=== PATIENT | male | born 1990 | race Caucasian/White ===

== ENCOUNTER 2020-12-08 08:55 | Outpatient (REF) | payer OTHER, SELFPAY | END 2020-12-08 08:56 | disposition home or self-care (01) | LOC: HO.LAB 08:55 | PROVIDERS: Visit Provider Internal Medicine | DX: Z20.822 Contact with and (suspected) exposure to COVID-19 (principal) | CPT/HCPCS: 36415; C9803; U0003; U0005 ==

== ENCOUNTER 2022-09-13 16:04 | Emergency (ER) | payer OTHER, SELFPAY ==
--- NOTE | ~2022-09-13 | US_ITS ---
EXAMINATION: US ABDOMEN LIMITED CLINICAL INFORMATION: Right upper quadrant/epigastric abdominal pain. COMPARISON: CT abdomen/pelvis 08/20/2013. TECHNIQUE: Real-time imaging of the right upper quadrant abdominal viscera. FINDINGS: PANCREAS: Normal. LIVER: The liver is normal in size. The liver contour is normal. Increased liver parenchymal echogenicity. No focal hepatic lesion. There is no intrahepatic biliary duct dilatation seen. GALLBLADDER: Normal. The gallbladder is physiologically distended without evidence of stones, sludge, polyps, wall thickening or pericholecystic fluid. COMMON BILE DUCT: Normal in caliber measuring 0.2 cm in diameter. RIGHT KIDNEY: Normal. No hydronephrosis. No renal calculi or focal parenchymal lesions. The kidney measures 10.4 cm in maximum dimension. FREE FLUID: None. US/US abdomen limited IMPRESSION: 1. Increased liver parenchymal echogenicity is nonspecific and could be seen in the setting of hepatic steatosis. Correlate with liver function tests. 2. Otherwise, normal examination.
[2022-09-13 17:15] VITALS: BP 158/98; PULSE 97; RESP 16; TEMP 36.6; O2SAT 97; BMI 34.9
--- NOTE | 2022-09-13 17:15 | ED.GENADULT ---
HPI - General Adult General Chief complaint: Medical Clearance <Chikis Suarez MD - Last Filed: 09/13/22 17:20> Stated complaint: Blood in stool/Needs clearance for detox <Chikis Suarez MD - Last Filed: 09/13/22 17:20> Time Seen by Provider: 09/13/22 18:37 <Chikis Suarez MD - Last Filed: 09/13/22 17:20> Source: patient <CARLEY Alvarenga - Last Filed: 09/13/22 22:19> Mode of arrival: ambulatory <CARLEY Alvarenga - Last Filed: 09/13/22 22:19> History of Present Illness HPI narrative: 31-year-old male with a past medical history of ETOH abuse/dependence presenting to the ED for detox medical clearance. States was taking intake at [facility] and reported bloody stools a few months ago, so was instructed to come to the ED. patient admits to drinking a few bottles of alcohol every couple days, last drink on Monday. Reports feeling mild withdrawal symptoms at present, denies history of EtOH withdrawal seizures or DTs. Denies other illicit substances. Admits had 1 episode of bloody stool months ago, also reports right upper quadrant abdominal pain. Denies fever, chills, vomiting, diarrhea, bloody stools/melena, hematuria, CP/SOB <CARLEY Alvarenga - Last Filed: 09/13/22 22:19> Onset (ago): day(s) <CARLEY Alvarenga - Last Filed: 09/13/22 22:19> Related Data Allergies/adverse reactions: Allergies Allergy/AdvReac Type Severity Reaction Status Date / Time SEAFOOD Allergy Severe ANAPHYLAXIS Uncoded 04/23/21 13:37 <Chikis Suarez MD - Last Filed: 09/13/22 17:20> Review of Systems Review of Systems: Constitutional: No Fever, No Chills, No Fatigue, No Malaise ENT/Mouth: No Ear Pain, No Nasal Congestion, No sore throat, No Rhinorrhea, No Swallowing Difficulty Eyes: No Eye Pain, No Swelling, No Redness, No Discharge, No Vision Changes Cardiovascular: No Chest Pain, No SOB, No Edema, No Palpitations Respiratory: No Cough, No Sputum, No Dyspnea Gastrointestinal: No Nausea, No Vomiting, No Diarrhea, No Constipation, + Abdominal pain, +bloody stool x1, No Melena Genitourinary: No Dysuria, No Hematuria, No Urinary Incontinence/retention, No Flank Pain Musculoskeletal: No joint pain, No Myalgias, No Joint Swelling Skin: No Skin Lesions, No rash Neuro: No Weakness, No Headache Psych: No Anxiety/Panic, No Depression, No SI/HI/AH/VH, No Social Issues, <CARLEY Alvarenga - Last Filed: 09/13/22 22:19> Yes all other systems are reviewed and are negative <CARLEY Alvarenga - Last Filed: 09/13/22 22:19> Constitutional: Constitutional: Reports as per HPI <CARLEY Alvarenga - Last Filed: 09/13/22 22:19> [facility] Past Medical History Attestation statement: The following information was validated with the patient. <CARLEY Alvarenga - Last Filed: 09/13/22 22:19> Social History Social History: Social History Advance Directives: No Advance Directives Information Provided: No <Chikis Suarez MD - Last Filed: 09/13/22 17:20> Physical Exam ED Vital Signs: Vital Signs - 24 hr 09/13/22 17:15 09/13/22 20:39 Temperature 98 F 98.0 F Pulse Rate 97 73 Respiratory Rate 16 18 Blood Pressure 158/98 H 138/83 Pulse Oximetry 97 96 Oxygen Delivery Method Room Air Room Air BMI result Body Mass Index 34.9 <Chikis Suarez MD - Last Filed: 09/13/22 17:20> Vital Signs - 24 hr 09/13/22 17:15 09/13/22 20:39 Temperature 98 F 98.0 F Pulse Rate 97 73 Respiratory Rate 16 18 Blood Pressure 158/98 H 138/83 Pulse Oximetry 97 96 Oxygen Delivery Method Room Air Room Air BMI result Body Mass Index 34.9 <CARLEY Alvarenga - Last Filed: 09/13/22 22:19> Const General: cooperative, healthy appearing, comfortable, no acute distress and well developed <CARLEY Alvarenga - Last Filed: 12/06/22 22:19> Orientation/consciousness: patient oriented x3 <CARLEY Alvarenga - Last Filed: 09/13/22 22:19> Limitations: no limitations <Christie Kim PA - Last Filed: 09/13/22 22:19> HENMT Head: Yes normal to inspection and Yes atraumatic <Christie Kim PA - Last Filed: 09/13/22 22:19> Ears: hearing grossly normal bilaterally <Christie Kim PA - Last Filed: 09/13/22 22:19> General nose exam: Normal external nose present <Christie Kim PA - Last Filed: 09/13/22 22:19> Face and sinus: Yes normal facial exam <Christie Kim PA - Last Filed: 09/13/22 22:19> Throat: Yes posterior oropharynx normal <Christie Kim PA - Last Filed: 09/13/22 22:19> Eyes General: appearance normal, both eyes and all related structures <Christie Kim PA - Last Filed: 09/13/22 22:19> EOM: EOMs intact bilaterally <Christie Kim PA - Last Filed: 09/13/22 22:19> Neck Neck: Yes normal visual inspection and Yes no meningeal signs <Christie Kim PA - Last Filed: 09/13/22 22:19> Resp Effort & Inspection: normal respiratory effort and no respiratory distress <Christie Kim PA - Last Filed: 09/13/22 22:19> Auscultation: clear to auscultation bilaterally, no crackles, no rales and no rhonchi <Christie Kim PA - Last Filed: 09/13/22 22:19> Cardio Rate: regular rate <Christie Kim PA - Last Filed: 09/13/22 22:19> Heart sounds: S1 normal heart sound present and S2 normal heart sound present <Christie Kim PA - Last Filed: 09/13/22 22:19> GI Inspection: Yes normal to inspection <Christie Kim PA - Last Filed: 09/13/22 22:19> Palpation (GI): Soft to palpation, Tenderness to palpation present (GI) in the epigastrum and in the RUQ; with no rebound tenderness, no guarding and not rigid <CARLEY Alvarenga - Last Filed: 09/13/22 22:19> Skin Rashes: no rashes <CARLEY Alvarenga - Last Filed: 09/13/22 22:19> Wounds: no wounds <CARLEY Alvarenga - Last Filed: 09/13/22 22:19> Neuro Other: No tongue fasciculations or tremor <CARLEY Alvarenga - Last Filed: 09/13/22 22:19> General: patient oriented x3, gait normal, tone normal, no meningeal signs and CN's II-XI intact bilaterally <CARLEY Alvarenga - Last Filed: 09/13/22 22:19> Gait exam (Neuro): Normal gait present <CARLEY Alvarenga - Last Filed: 09/13/22 22:19> Extrem General: Yes normal to inspection <CARLEY Alvarenga - Last Filed: 09/13/22 22:19> Course Course Course Narrative: 31M supposed to get etoh rehab, and pt mentioned a remote histoyr of bloody stool but denies any recent bloody stool, no dizziness or SOB. VS Reviewed GEN: NAD EARS: wnl THROAT: wnl LUNGS: CTAB CVS: RRR ABD: NT/ND <Chikis Suarez MD - Last Filed: 09/13/22 17:20> 31M supposed to get etoh rehab, and pt mentioned a remote histoyr of bloody stool but denies any recent bloody stool, no dizziness or SOB. VS Reviewed GEN: NAD EARS: wnl THROAT: wnl LUNGS: CTAB CVS: RRR ABD: NT/ND -2200--mild leukocytosis of 13.9 > no evidence of infection. Low suspicion for severe sepsis. Mild THAIS with a BUN of 18, creatinine of 1.66, no available priors > will give 1 L IVF and repeat. Labs otherwise reassuring US abdomen limited IMPRESSION: 1.? Increased liver parenchymal echogenicity is nonspecific and could be seen in the setting of hepatic steatosis. Correlate with liver function tests. 2.? Otherwise, normal examination. > patient deferred rectal exam however was able to give stool sample and occult negative. Tox screen positive for cocaine and THC. Alcohol negative. >> THAIS resolved after IVF Results discussed with patient including worrisome signs and symptoms and strict return precautions, and when to return to the emergency department. They verbalized understanding and feel safe for discharge at this time. <CARLEY Alvarenga - Last Filed: 09/13/22 22:19> Medications Administered Discontinued Medications Generic Name Dose Route Start Last Admin Trade Name Freq PRN Reason Stop Dose Admin Sodium Chloride 1,000 mls @ 999 mls/hr 09/13/22 19:00 09/13/22 21:13 Ns IV 09/13/22 20:00 Infused .Q1H1M PIPPA Infusion <Chikis Suarez MD - Last Filed: 09/13/22 17:20> Medications Administered Discontinued Medications Generic Name Dose Route Start Last Admin Trade Name Freq PRN Reason Stop Dose Admin Sodium Chloride 1,000 mls @ 999 mls/hr 09/13/22 19:00 09/13/22 21:13 Ns IV 09/13/22 20:00 Infused .Q1H1M PIPPA Infusion <CARLEY Alvarenga - Last Filed: 09/13/22 22:19> Medical Decision Making Medical Decision Making MDM Narrative: 31-year-old male with a past medical history of ETOH abuse/dependence presenting to the ED for detox medical clearance. On exam vital signs stable, NAD, nontoxic appearing, abdomen soft with epigastric/RUQ tenderness, no rebound or guarding, no evidence of ETOH withdrawal at this time. Concern for ETOH dependence vs metabolic abnormality vs hepatic steatosis/cholecystitis/lithiasis vs ? Hemorrhoidal bleeding. Lower suspicion for occult GI bleed with 1 episode of bloody stool months ago. Plan: COVID-19/influenza testing, labs, drug screen, abdomen ultrasound <CARLEY Alvarenga - Last Filed: 09/13/22 22:19> Differential Diagnoses: Differential diagnosis Differential Diagnosis: The differential diagnosis associated with the patient?s presentation includes: As above <CARLEY Alvarenga Last Filed: 09/13/22 22:19> Discussion of management with other physician/healthcare provider/other source (e.g., hospitalist, student union consultant, behavioral health): Discussion w/other physician/healthcare provider Management of the patient was discussed with: Behavorial Health Provider To aid patient getting into detox <CARLEY Alvarenga Last Filed: 09/13/22 22:19> Lab Attestation: I reviewed the patient's lab results. <CARLEY Alvarenga - Last Filed: 09/13/22 22:19> Care significantly affected by Social Determinants of Health (e.g., housing and economic circumstances, unemployment): Care affected by Social Determinants of Health Patient's care limited by Social Determinants of Health: Alcoholism and drug addiction in family <CARLEY Alvarenga - Last Filed: 09/13/22 22:19> Discharge Plan Discharge Clinical Impression: Alcohol abuse, Acute dehydration <Chikis Suarez MD - Last Filed: 09/13/22 17:20> Patient Disposition: Home, Self-Care <Chikis Suarez MD - Last Filed: 09/13/22 17:20> Instructions: Dehydration (ED), Alcohol Use Disorder (ED) <Chikis Suarez MD - Last Filed: 09/13/22 17:20> Additional Instructions: You are medically cleared to go to detox Your stool was negative for blood. Your blood work initially showed evidence of dehydration however resolved after you were given fluids. Your ultrasound showed some fatty liver, avoid alcohol, fatty/greasy foods We have close follow-up with your doctor. Avoid alcohol consumption, alcohol withdrawal can kill you If symptoms persist or worsen, you develop recurrent bloody stool or black stool return to the emergency department <Chikis Suarez MD - Last Filed: 09/13/22 17:20> Referrals: Nancy Soto MD [Primary Care Provider] - 5 days <Chikis Suarez MD - Last Filed: 09/13/22 17:20> Stand Alone Forms: Substance Abuse Outpt Detox <Chikis Suarez MD - Last Filed: 09/13/22 17:20> Discharge Date/Time: 09/13/22 22:19 <Chikis Suarez MD - Last Filed: 09/13/22 17:20>
[2022-09-13 18:01] LABS: MANUAL DIFF FLAG NO
[2022-09-13 18:14] LABS: Amphetamine Screen Urine Not Detected (Not Detect); Barbiturates, Urine Not Detected (Not Detect); Benzodiazepines Screen Urine Not Detected (Not Detect); Cannabinoid Screen Urine POSITIVE (Not Detect); Cocaine Screen Urine POSITIVE (Not Detect); Fentanyl, urine Not Detected (Not Detect); Opiate Screen Urine Not Detected (Not Detect); Phencyclidine Screen Urine Not Detected (Not Detect)
[2022-09-13 18:23] LABS: COVID-19 Test Negative (Negative); IDNOW Serial# 55D5AD1C; Influenza A Negative (Negative); Influenza B2 Negative (Negative)
[2022-09-13 18:28] LABS: Alanine Aminotransferase 38 U/L (0-40); Albumin Level 4.6 g/dL (3.5-5.0); Alkaline Phosphatase 98 U/L (39-117); Anion Gap 12 (12-20); Aspartate Amino Transferase 21 U/L (5-37); Bilirubin Total 0.3 mg/dL (0.0-1.0); Blood Urea Nitrogen 18 mg/dL (9-16); Calcium 9.7 mg/dL (8.4-10.2); Carbon Dioxide 25 mmol/L (22-29); Chloride 106 mmol/L (96-108); Creatinine Clr Calc Pharmacy 68.4; Estimated Glomerular Filt Rate 49; Glucose Random 113 mg/dL (60-115); Potassium 4.1 mmol/L (3.3-5.1); Sodium 139 mmol/L (135-145)
[2022-09-13 18:31] LABS: Basophils Absolute Auto 0.1 X10*3/uL (0.0-0.2); Basophils Percent Auto 0.6 % (0-2); Eosinophils Absolute Auto 0.3 X10*3/uL (0.0-0.4); Eosinophils Percent Auto 1.9 % (0-4); Hematocrit 45.5 % (42.0-52.0); Hemoglobin 15.2 g/dl (14.0-18.0); Imm Gran Abs Auto 0.14 X10*3/uL (0.00-0.03); Lymphocytes Absolute Auto 3.8 X10*3/uL (1.2-4.9); Lymphocytes Percent Auto 27.2 % (20-40); Mean Corpuscular HGB Conc 33.4 g/dl (31.0-36.0); Mean Corpuscular Hemoglobin 26.8 pg (27.0-33.0); Mean Corpuscular Volume 80.2 fL (80.0-98.0); Mean Platelet Volume 9.3 fL (9.4-12.4); Monocytes Percent Auto 6.8 % (2-11); Neutrophils Absolute Auto 8.7 x10*3/uL (2.0-8.3); Neutrophils Percent Auto 62.5 % (45-73); Platelet Count 370 X10*3/uL (160-400); Red Blood Count 5.67 X10*6/uL (4.60-5.80); Red Cell Distribution Width 13.2 % (11.0-16.0); White Blood Count 13.9 X10*3/uL (4.8-10.8)
[2022-09-13 18:37] LABS: Ethanol < 10 mg/dL; Total Protein 8.2 g/dL (6.5-8.0)
[2022-09-13 19:15] LABS: Lipase 25 U/L (8-78); Magnesium 2.1 mg/dL (1.6-2.6)
[2022-09-13] MEDS: 0.9 % Sodium Chloride 1,000 ML 999 ML IV (19:34)
[2022-09-13 20:39] VITALS: BP 138/83; PULSE 73; RESP 18; TEMP 36.7; O2SAT 96
[2022-09-13 21:29] LABS: Anion Gap 14 (12-20); Blood Urea Nitrogen 17 mg/dL (9-16); Calcium 8.9 mg/dL (8.4-10.2); Carbon Dioxide 23 mmol/L (22-29); Chloride 106 mmol/L (96-108); Creatinine Clr Calc Pharmacy 82.8; Estimated Glomerular Filt Rate > 60; Glucose Random 101 mg/dL (60-115); Potassium 4.1 mmol/L (3.3-5.1); Sodium 139 mmol/L (135-145)
[2022-09-13 21:44] LABS: OBS Int Ctl Valid YES; OBS1 NEGATIVE (NEGATIVE)
--- NOTE | 2022-09-13 22:21 | MHC.CARE ---
CARE team contacted Carrie Arauz re: pt who reported that he had completed a phone intake for detox admission and was told to go to the ED for medical clearance. ED physician report has been faxed to Carrie Arauz for review and the executive coordinator will reach out to the pt to schedule an intake for the morning.
== END 2022-09-13 22:19 | disposition home or self-care (01) ==
PROVIDERS: Physician Assistant; Emergency Provider Student in an Organized Health Care Education/Training Program; PCP Internal Medicine
DX: K92.1 Melena (principal); E86.0 Dehydration; F10.10 Alcohol abuse, uncomplicated; Y90.8 Blood alcohol level of 240 mg/100 ml or more; Z20.822 Contact with and (suspected) exposure to COVID-19; Z79.899 Other long term (current) drug therapy
CPT/HCPCS: 36415; 76705; 80048; 80053; 80307; 82077; 82272; 83690; 83735; 85025; 87502; 87635; 96360; 96361; 99283; 99284

== ENCOUNTER 2023-07-10 15:21 | Emergency (ER) | payer OTHER, SELFPAY ==
--- NOTE | ~2023-07-10 | XR_ITS ---
EXAMINATION: XR RIGHT SHOULDER XR RIGHT CLAVICLE CLINICAL INFORMATION: Right shoulder and right clavicle pain. COMPARISON: None. TECHNIQUE: AP, Grashey and scapular Y views of the right shoulder were obtained. Axial view of the right clavicle. FINDINGS: Alignment is anatomic. Acromioclavicular and glenohumeral joint spaces are maintained without significant cartilage space loss. No displaced fracture or malalignment. No abnormal soft tissue calcifications. XR/XR shoulder RT min 2V IMPRESSION: No acute abnormality.
--- NOTE | ~2023-07-10 | XR_ITS ---
EXAMINATION: XR RIGHT SHOULDER XR RIGHT CLAVICLE CLINICAL INFORMATION: Right shoulder and right clavicle pain. COMPARISON: None. TECHNIQUE: AP, Grashey and scapular Y views of the right shoulder were obtained. Axial view of the right clavicle. FINDINGS: Alignment is anatomic. Acromioclavicular and glenohumeral joint spaces are maintained without significant cartilage space loss. No displaced fracture or malalignment. No abnormal soft tissue calcifications. XR/XR clavicle RT IMPRESSION: No acute abnormality.
[2023-07-10 15:48] VITALS: BP 150/103; PULSE 92; RESP 16; TEMP 35.8; O2SAT 96; BMI 34.1
--- NOTE | 2023-07-10 15:52 | ED_ITS ---
HPI - URI/Sore Throat General Chief Complaint: Extremity Problem Stated Complaint: R shoulder pain, work injury Time Seen by Provider: 07/10/23 16:00 Source: patient Mode of arrival: ambulatory Limitations: no limitations History of Present Illness HPI Narrative: Patient is a 32 year old assigned male at with no reported medical history presenting to the emergency department today with right shoulder pain. Patient states that he was moving some concrete with a shovel and began to have right shoulder pain. Patient states that it hurts to put his right arm over his head. Patient denies any dizziness, lightheadedness, abdominal pain, nausea, vomiting, fever, chills, blurry vision, double vision, loss of vision, chest pain, difficulty breathing, shortness of breath, back pain, night sweats, pain with urination, increased urinary frequency, increased urinary urgency, blood in his urine or stool, syncope or a near syncopal episode, bowel incontinence, bladder incontinence, bowel retention, bladder retention, or any other complaints at this time. MD elicited complaint: other (right shoulder pain) Onset (ago): hour(s) Severity: mild Pain scale (0-10): 3 Exacerbating factors: other (movement of his right shoulder) Associated symptoms: denies other symptoms Treatments prior to arrival: none Related Data Previous Rx's Medication Instructions Recorded cyclobenzaprine 5 mg tablet 5 mg PO TID PRN shoulder pain 7 07/10/23 days #21 tabs naproxen 500 mg tablet 500 mg PO BID 7 days #14 tabs 07/10/23 prednisone 20 mg tablet 20 mg PO DAILY 7 days #7 tabs 07/10/23 Allergies Allergy/AdvReac Type Severity Reaction Status Date / Time SEAFOOD Allergy Severe ANAPHYLAXIS Uncoded 04/23/21 13:37 Review of Systems Constitutional: Constitutional: Reports no additional constitutional complaints, Denies chills, Denies fever(s) and Denies night sweats Eyes: Eyes: Reports no additional eye complaints, Denies blurry vision, Denies change in vision, Denies diplopia, Denies eye discharge, Denies loss of vision and Denies eye pain ENT: Denies dizziness Cardiovascular: Cardiovascular: Reports no additional cardiovascular complaints, Denies chest pain, Denies lightheadedness, Denies Loss of Consciousness and Denies dyspnea Respiratory: Respiratory: Reports no additional respiratory complaints and Denies dyspnea Gastrointestinal: Gastrointestinal: Reports no additional gastrointestinal complaints, Denies abdominal pain, Denies melena, Denies hematochezia, Denies change in bowel habits and Denies change in stool character Genitourinary: Genitourinary: Reports no additional male genitourinary complaints, Denies hematuria, Denies oliguria, Denies difficulty urinating, Denies dysuria, Denies urinary frequency, Denies urinary hesitancy, Denies urinary incontinence and Denies urinary urgency Musculoskeletal: Musculoskeletal: Reports no additional musculoskeletal complaints, Denies numbness and Denies tingling Comments: right shoulder pain Neurologic: Denies dizziness, Denies loss of vision, Denies numbness and Denies tingling Psychiatric: Psychiatric: Reports no additional psychiatric complaints Endocrine: Endocrine: Reports no additional endocrine complaints Hematologic/Lymphatic: Hematologic/Lymphatic: Reports no additional hematologic/lymphatic complaints Allergic/Immunologic: Allergic/Immunologic: Reports no additional allergic/immunologic complaints PMFSH Past Medical History Attestation statement: The following information was validated with the patient. Source: old records reviewed and nursing notes reviewed Social History Social History Advance Directives: No Advance Directives Information Provided: No Physical Exam Vital Signs: Vital Signs: Last Vital Signs Temp 96.5 F L 07/10/23 15:48 Pulse 92 07/10/23 15:48 Resp 16 07/10/23 15:48 BP 150/103 H 07/10/23 15:48 Pulse Ox 96 07/10/23 15:48 O2 Del Method Room Air 07/10/23 15:48 BMI result Body Mass Index 34.1 Const: General: cooperative, no acute distress, alert and awake Nutritional Appearance: well nourished Orientation/consciousness: patient oriented x3 Limitations: no limitations HEENT: Head: Yes normal to inspection and Yes atraumatic Ears: hearing grossly normal bilaterally and external ears normal General nose exam: Normal external nose present, no nasal discharge noted and no epistaxis Face and sinus: Yes normal facial exam, No abrasion and No laceration Mouth: Normal oral and palatal mucosa present, no drooling and no muffled voice Eyes: General: appearance normal, both eyes and all related structures Periorbital: periorbital findings normal Eyelids: Yes eyelids normal Conjunctivae: conjunctivae normal Pupils: Equal, round and reactive pupils present EOM: EOMs intact bilaterally Neck: Neck: Yes normal visual inspection, Yes full ROM and Yes no lymphadenopathy Chest: Chest palpation & inspection: normal inspection of the chest Resp: Effort & Inspection: normal respiratory effort and able to speak in complete sentences GI: Inspection: Yes normal to inspection Neuro: General: patient oriented x3 and moves all extremities Cranial nerves: Yes Equal, round and reactive pupils present Cognition (Neuro): normal cognition Motor exam (neuro): 5/5 motor strength present throughout Sensory Exam: Normal double simultaneous stimulation for sensation Coordination: [id number] test normal Extrem: Other: Pain with right shoulder ROM General: Yes normal to inspection, Yes full ROM and Yes capillary refill normal Psych: Appearance: grossly normal Mental Status: mental status grossly normal Affect: normal affect Attitude: cooperative Thought process: Normal thought process present Thought content: Normal thought content present Insight: Good insight present (Psych) Course Course Course Narrative: This is an RME: Additional HPI, ROS, PE not included below will be deferred to primary provider. This is a [id number] presenting to the emergency department with a complaint of right shoulder/right clavicle pain x 2 days. He was shoveling at work on monday and has had shoulder pain and clavicle fx as a child. TTp over distal clavicle and r shoulder. No CP/SOB Plan: xr shoulder/clavicle ordered. Medications Administered Discontinued Medications Generic Name Dose Route Start Last Admin Trade Name Freq PRN Reason Stop Dose Admin Cyclobenzaprine HCl 5 mg 07/10/23 16:25 07/10/23 16:31 Cyclobenzaprine Hcl 5 Mg Tablet PO 07/10/23 16:26 5 mg ONCE ONE Administration Prednisone 20 mg 07/10/23 16:25 07/10/23 16:31 Prednisone 20 Mg Tablet PO 07/10/23 16:26 20 mg ONCE ONE Administration Medical Decision Making Medical Decision Making MDM Narrative: Patient is a 32 year old assigned male at with no reported medical history presenting to the emergency department today with right shoulder pain. Patient's physical exam was as noted in the physical exam portion of this note. Patient's right shoulder and clavicle x-rays showed no acute process. I explained my physical exam findings as well as all test results to the patient. I answered all questions asked by the patient. Patient received PO Prednisone and flexeril which he stated helped his symptoms significantly. I stressed the importance of the patient taking his medication as prescribed. I stressed the importance of the patient following up with his primary care provider and an orthopedic provider. I stressed the importance of the patient returning to the emergency department immediately if his symptoms were to worsen or if he were to develop any dizziness, shortness of breath, difficulty breathing, chest pain, blurry vision, loss of vision, nausea, vomiting, abdominal pain, fever, chills, back pain, or any other complaints. Patient verbalized agreement and understanding with this treatment plan and discharge. Differential Diagnosis Differential Diagnoses: The differential diagnosis associated with the presentation includes Right shoulder pain Rotator cuff strain / sprain Shoulder injury Independent Interpretation I performed an independent interpretation of an: Plain X-Ray Interpretation: My interpretation is in agreement with the radiologist's impression of these imaging studies. --------- EXAMINATION: XR RIGHT SHOULDER XR RIGHT CLAVICLE CLINICAL INFORMATION: Right shoulder and right clavicle pain. COMPARISON: None. TECHNIQUE: AP, Grashey and scapular Y views of the right shoulder were obtained. Axial view of the right clavicle. FINDINGS: Alignment is anatomic. Acromioclavicular and glenohumeral joint spaces are maintained without significant cartilage space loss. No displaced fracture or malalignment. No abnormal soft tissue calcifications. XR/XR shoulder RT min 2V IMPRESSION: No acute abnormality. Dictated By: Thiago Peñaloza MD Signed By: Electronically signed by Thiago Peñaloza MD 07/10/23 9116 Radiology Impression Discussion of test interpretation with radiology: I have reviewed the radiologist's reading. Prescription Management I considered prescription management with: Pain Medication (patient prescribed pain medication.) Discharge Plan Discharge Clinical Impression: Rotator cuff injury Patient Disposition: Home, Self-Care Instructions: Rotator Cuff Injury (ED), Rotator Cuff Injury Exercises (DC) Additional Instructions: Follow up with your primary care provider and an orthopedic provider. Return to the emergency department immediately if your symptoms worsen or if you develop any dizziness, shortness of breath, difficulty breathing, chest pain, blurry vision, loss of vision, nausea, vomiting, abdominal pain, fever, chills, back pain, or any other complaints. Prescriptions: New prednisone 20 mg tablet 20 mg PO DAILY 7 Days Qty: 7 0RF naproxen 500 mg tablet 500 mg PO BID 7 Days Qty: 14 0RF cyclobenzaprine 5 mg tablet 5 mg PO TID PRN (Reason: shoulder pain) 7 Days Qty: 21 0RF Referrals: [facility] [Provider Group] (Call to establish and follow up with an orthopedic provider.) [facility] [Provider Group] (Given this injury occurred while at work, you should follow up with [facility].) Nancy Soto MD [Primary Care Provider] - Stand Alone Forms: Work/School Release Interventions: ED Discharge Assessment Last Done: 07/10/23 16:40 Discharge Date/Time: 07/10/23 16:41 Print Language: Algerian
[2023-07-10] MEDS: predniSONE 20 MG TABLET PO (16:31)
[2023-07-10] MEDS: Cyclobenzaprine HCl 5 MG TABLET PO (16:31)
== END 2023-07-10 16:41 | disposition home or self-care (01) ==
PROVIDERS: Emergency Provider Emergency Medicine; PCP Internal Medicine
DX: S46.011A Strain of muscle(s) and tendon(s) of the rotator cuff of right shoulder, initial encounter (principal); M25.511 Pain in right shoulder; X50.0XXA Overexertion from strenuous movement or load, initial encounter; Y93.9 Activity, unspecified; Y92.9 Unspecified place or not applicable; Y99.0 Civilian activity done for income or pay
CPT/HCPCS: 73000; 73030; 99283

== ENCOUNTER 2023-08-03 12:30 | Outpatient (AMB) | payer OTHER, SELFPAY ==
--- NOTE | 2023-08-03 12:33 | MHC.OFFVIS ---
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 The patient states that he injured his shoulder approximately 1 year ago while lifting a heavy object. Since that time his symptoms have gotten worse in spite of continued non operative treatments. He has done physical therapy for 12 weeks over the last 6 months which aggravated his pain. He has also tried Tylenol and anti-inflammatory medicines which gave him minimal relief. He has had injections in the past which gave him only temporary relief. Reports weakness when lifting his right hand above shoulder height. Allergies SEAFOOD Allergy (Severe, Uncoded 08/03/23 12:37) ANAPHYLAXIS Medication List - Last Reconciled 08/03/23 by Chika Allison RN cyclobenzaprine 5 mg PO TID PRN 7 days naproxen 500 mg PO BID 7 days omeprazole 20 mg PO DAILY prednisone 20 mg PO DAILY 7 days Physical Exam Const Other: Well-nourished well-developed very friendly male awake alert and oriented x3 in no acute distress Extrem Other: Bilateral upper extremity examination shows good capillary refill, no skin lesions noted, normal sensation light touch Right shoulder examination shows almost full range of motion when compared to his left shoulder, 4+ out of 5 strength with supraspinatus testing, positive impingement signs, tenderness over his acromioclavicular joint, no instability Results Reviewed Results Reviewed: X-rays of the patient's right shoulder show acromioclavicular joint narrowing, a type 2 acromion, no acute bony abnormalities Assessment & Plan Assessment & Plan (1) Right shoulder pain: Code(s): M25.511 - Pain in right shoulder Plan: Mr. Chaves presents with right shoulder pain and weakness due to impingement syndrome and possible rotator cuff tearing. Thus, I will send the patient for an MRI of his right shoulder for further evaluation. I will see him back once the MRI is completed to discuss the findings and treatment options. He will continue with his activity modifications in the meantime. Feel free to call me at any time with questions regarding his orthopedic management arise. I spent 22 minutes in reviewing the patient's records and imaging studies, seeing the patient and documenting in the medical record. Orders: Orders MR shoulder RT wo con Today M25.511 - Pain in right shoulder Coding Level of Care Code New Pt Level 2 (45301) Diagnoses Right shoulder pain M25.511
== END 2023-08-03 12:52 | disposition home or self-care (01) ==
PROVIDERS: PCP Internal Medicine; Visit Provider Orthopaedic Surgery
DX: M25.511 Pain in right shoulder (principal)
CPT/HCPCS: 99202

== ENCOUNTER → 2023-08-03 12:30 | Outpatient (BNVA) | payer OTHER, SELFPAY | PROVIDERS: PCP Internal Medicine; Visit Provider Orthopaedic Surgery | DX: M25.511 Pain in right shoulder (principal) | CPT/HCPCS: 99202 ==

== ENCOUNTER 2024-08-05 07:11 | Emergency (ER) | payer OTHER, SELFPAY ==
--- NOTE | ~2024-08-05 | CT_ITS ---
EXAMINATION: CT ABDOMEN AND PELVIS WITH CONTRAST CLINICAL INFORMATION: Right lower quadrant pain. COMPARISON: August 20, 2013 TECHNIQUE: Multidetector volumetric images were obtained from the superior aspect of the liver through the pubic symphysis following administration 85 mL of Omnipaque 350 intravenous contrast. Sagittal and coronal reformatted images were obtained on the technologist's workstation. Oral contrast: No This CT examination was performed using dose optimization techniques as appropriate, variously including the following: *Automated exposure control *Adjustment of mA and/or kV according to patient size (this includes techniques or standardized protocols for targeted exams where dose is matched to indication/reason for exam; i.e. extremities or head) *Use of iterative reconstruction technique DLP: 557 mGy-cm FINDINGS: LUNG BASES: The visualized lung bases are unremarkable. LIVER, GALLBLADDER, AND BILIARY TREE: The liver is normal in size and contour. 8 mm indeterminate hypodensity at the hepatic dome. No biliary ductal dilatation is present. The gallbladder is unremarkable with no evidence of radiopaque gallstones, gallbladder wall thickening, or obvious pericholecystic inflammatory changes. PANCREAS: Unremarkable. SPLEEN: Unremarkable. ADRENAL GLANDS: Unremarkable. KIDNEYS AND URETERS: The kidneys are symmetric in size and enhancement. No hydronephrosis. No perinephric stranding. BLADDER: Decompressed. GASTROINTESTINAL TRACT: Submucosal fatty infiltration of the cecum and ascending colon with mild pericecal inflammatory changes. The appendix is nondilated. The terminal ileum is unremarkable. No small bowel obstruction. ABDOMINAL WALL: No significant hernia is appreciated. LYMPH NODES: No bulky lymphadenopathy. VASCULAR: Normal caliber abdominal aorta. PELVIC VISCERA: Unremarkable. OSSEOUS STRUCTURES: No destructive bone lesions. CT/CT abdomen pelvis w IV con IMPRESSION: Submucosal fatty infiltration of the cecum and descending colon with mild pericecal inflammatory changes. The appendix is nondilated. The possibility of inflammatory or infectious colitis should be considered. Electronically signed by: Riley Peñaloza MD 08/05/2024 09:42 AM EDT
[2024-08-05 07:14] VITALS: BP 141/84; PULSE 91; RESP 18; TEMP 36.6; O2SAT 96; BMI 32.0
--- NOTE | 2024-08-05 07:27 | ED_ITS ---
HPI - Abdominal Pain General Chief Complaint: Abdominal Pain Stated Complaint: LRQ pain Time Seen by Provider: 08/05/24 07:20 Source: patient Mode of arrival: ambulatory Limitations: no limitations History of Present Illness HPI narrative: THIS IS A 33 YEARS OLD MALE PRESENTED TO THE EMERGENCY DEPARTMENT WITH A CHIEF COMPLAINT OF RIGHT LOWER QUADRANT ABDOMINAL PAIN SINCE YESTERDAY, DENIES ANY NAUSEA VOMITING OR DIARRHEA. PAIN IS LOCALIZED IN THE RIGHT LOWER QUADRANT NO RADIATION MD elicited complaint: abdominal pain Pertinent past history: none Onset (ago): day(s) (1) Pain Consistency: constant Location: RLQ Severity: moderate Quality: cramping Migration to: no migration Exacerbating factors: nothing Related Data Home Medications ?Medication ?Instructions ?Recorded ?Confirmed omeprazole 20 mg capsule,delayed 20 mg PO DAILY 08/03/23 08/03/23 release Previous Rx's ?Medication ?Instructions ?Recorded cyclobenzaprine 5 mg tablet 5 mg PO TID PRN shoulder pain 7 07/10/23 days #21 tabs naproxen 500 mg tablet 500 mg PO BID 7 days #14 tabs 07/10/23 prednisone 20 mg tablet 20 mg PO DAILY 7 days #7 tabs 07/10/23 amoxicillin 875 mg-potassium 1 tab PO BID #14 tabs 08/05/24 clavulanate 125 mg tablet oxycodone 5 mg capsule 5 mg PO Q8H PRN pain #12 caps 08/05/24 Allergies Allergy/AdvReac Type Severity Reaction Status Date / Time SEAFOOD Allergy Severe ANAPHYLAXIS Uncoded 08/05/24 07:16 Review of Systems Reports system reviewed and no additional complaints, except as documented Respiratory: Reports no additional respiratory complaints Gastrointestinal: Reports no additional gastrointestinal complaints [facility] Past Medical History [facility] Narrative: DENIES Social History Social History Smoked in Last 30 Days: No Advance Directives: No Do you have a plan to hurt others: No Plan Physical Exam ED Vital Signs: Vital Signs - 24 hr 08/05/24 07:14 08/05/24 09:49 Temperature 97.8 F 97.7 F Pulse Rate 91 63 Respiratory Rate 18 20 Blood Pressure 141/84 H 140/95 H Pulse Oximetry 96 99 Oxygen Delivery Method Room Air BMI result Body Mass Index 32.0 HE LOOKS WELL IS NOT TOXIC-APPEARING Const General: cooperative Nutritional Appearance: average body habitus Orientation/consciousness: patient oriented x3 HENMT Head: Yes normal to inspection Ears: hearing grossly normal bilaterally General nose exam: Normal external nose present Face and sinus: Yes normal facial exam Mouth: Normal oral and palatal mucosa present Neck Neck: Yes normal visual inspection Resp Effort & Inspection: normal respiratory effort Cardio Jugular venous distension: no JVD Rate: regular rate Rhythm: regular rhythm GI Inspection: Yes normal to inspection Palpation (GI): Soft to palpation and Tenderness to palpation present (GI) in the RLQ Auscultation: normal bowel sounds General: Yes no CVA tenderness Back/Spine/Pelvis Back: no CVA tenderness Neuro General: patient oriented x3 Motor exam (neuro): 5/5 motor strength present throughout Course Reevaluation(s) Reevaluation #1: On re-examination he is feeling better CT scan showed no appendicitis, his white count is normal his urine is clear. Radiology thinks may be possible colitis, it is reasonable to discharge the patient on p.o. antibiotic clear liquid diet follow-up with the PCP Time: 09:58 Medical Decision Making Medical Decision Making [facility] Narrative: PATIENT PRESENTED COMPLAINING OF RIGHT LOWER QUADRANT ABDOMINAL PAIN, WILL OBTAIN LABS CT Differential Diagnosis Differential Diagnoses: The differential diagnosis associated with the presentation includes ACUTE APPENDICITIS/DIVERTICULITIS/PERFORATED BOWEL Admission/Observation Consideration of admission/observation: Escalation of care including admission/observation considered Lab Data MDM Lab Attestation statement: I reviewed the patient's lab results. 08/05/24 07:22 08/05/24 07:22 Labs: Lab Results 08/05/24 08/05/24 Range/Units 07:22 08:51 WBC 7.8 (4.8-10.8) X10*3/uL RBC 5.48 (4.60-5.80) X10*6/uL Hgb 14.9 (14.0-18.0) g/dl Hct 44.2 (42.0-52.0) % MCV 80.7 (80.0-98.0) fL MCH 27.2 (27.0-33.0) pg MCHC 33.7 (31.0-36.0) g/dl RDW 13.7 (11.0-16.0) % Plt Count 385 (160-400) X10*3/uL MPV 8.8 L (9.4-12.4) fL Immature Gran % (Auto) 0.3 (0.0-0.4) % Neut % (Auto) 60.7 (45-73) % Lymph % (Auto) 25.2 (20-40) % [place] % (Auto) 9.0 (2-11) % Eos % (Auto) 4.3 H (0-4) % Baso % (Auto) 0.5 (0-2) % Lymph # (Auto) 2.0 (1.2-4.9) X10*3/uL [place] # (Auto) 0.7 (0.1-1.2) X10*3/uL Eos # (Auto) 0.3 (0.0-0.4) X10*3/uL Baso # (Auto) 0.0 (0.0-0.2) X10*3/uL Abs Immat Gran (auto) 0.02 (0.00-0.03) X10*3/uL Absolute Neuts (auto) 4.7 (2.0-8.3) x10*3/uL Absolute Nucleated RBC 0.000 (0.0-0.012) X10*3/uL Nucleated RBC % (auto) 0.0 (0.0-0.2) /100WBC Sodium 139 (135-145) mmol/L Potassium 4.0 (3.3-5.1) mmol/L Chloride 107 (96-108) mmol/L Carbon Dioxide 21 L (22-29) mmol/L Anion Gap 15 (12-20) BUN 16 (9-16) mg/dL Creatinine 1.13 (0.5-1.4) mg/dL Estim Creat Clear Calc 97.6 Estimated GFR > 60 Random Glucose 123 H (60-115) mg/dL Calcium 9.5 D (8.4-10.2) mg/dL Total Bilirubin 0.3 (0.0-1.0) mg/dL AST 36 (5-37) U/L ALT 38 (0-40) U/L Alkaline Phosphatase 93 (39-117) U/L Total Protein 7.7 (6.5-8.0) g/dL Albumin 4.1 (3.5-5.0) g/dL Lipase 19 (8-78) U/L Urine Color Yellow Urine Appearance Clear Urine pH 5.5 (5.0-9.0) Ur Specific [place] 1.025 (1.005-1.025) Urine Protein Negative (Neg-Trace) mg/dL Urine Glucose (UA) Negative (Negative) mg/dL Urine Ketones Negative (Negative) mg/dL Urine Blood Negative (Negative) Urine Nitrite Negative (Negative) Ur Leukocyte Esterase Negative (Negative) Independent Interpretation I performed an independent interpretation of an: CT Scan Interpretation: No appendicitis Radiology Impression Discussion of test interpretation with radiology: I have reviewed the radiologist's reading. Radiologist Impression: matory changes. The appendix is nondilated. The terminal ileum is unremarkable. No small bowel obstruction. ABDOMINAL WALL: No significant hernia is appreciated. LYMPH NODES: No bulky lymphadenopathy. VASCULAR: Normal caliber abdominal aorta. PELVIC VISCERA: Unremarkable. OSSEOUS STRUCTURES: No destructive bone lesions. CT/CT abdomen pelvis w IV con IMPRESSION: Submucosal fatty infiltration of the cecum and descending colon with mild pericecal inflammatory changes. The appendix is nondilated. The possibility of inflammatory or infectious colitis should be considered. Electronically signed by: Riley Peñaloza MD 08/05/2024 09:42 AM EDT Independent Historian Clinical information obtained from an independent historian. History obtained from or confirmed by: Spouse Prescription Management I considered prescription management with: Antibiotic Medications Administered Discontinued Medications Generic Name Dose Route Start Last Admin Trade Name Freq PRN Reason Stop Dose Admin Iohexol 100 ml 08/05/24 09:01 08/05/24 09:01 Iohexol 350 Mg/Ml 100 Ml Infus..Btl IV 08/05/24 09:02 85 ml ONCE ONE Administration Morphine Sulfate 4 mg 08/05/24 07:25 08/05/24 07:35 Morphine Sulfate 4 Mg/Ml Cartridge IVPUSH 08/05/24 07:26 4 mg ONCE ONE Administration Protocol Ondansetron HCl 4 mg 08/05/24 07:25 08/05/24 07:34 Ondansetron Hcl 4 Mg/2 Ml Vial IVPUSH 08/05/24 07:26 4 mg ONCE ONE Administration Discharge Plan Discharge Clinical Impression: Colitis Patient Disposition: Home, Self-Care Instructions: Colitis (ED) Additional Instructions: Follow-up with your primary care physician return to the emergency room if you are worse we sent a prescription for you for antibiotic and pain medicine. Stable liquid diet of 48 hours. Prescriptions: New amoxicillin-pot clavulanate 875-125 mg tablet 1 tab PO BID Qty: 14 0RF oxycodone 5 mg capsule 5 mg PO Q8H PRN (Reason: pain) Qty: 12 0RF Rx Instructions: Partial Fill upon patient request. No Action prednisone 20 mg tablet 20 mg PO DAILY 7 Days Qty: 7 0RF naproxen 500 mg tablet 500 mg PO BID 7 Days Qty: 14 0RF cyclobenzaprine 5 mg tablet 5 mg PO TID PRN (Reason: shoulder pain) 7 Days Qty: 21 0RF omeprazole 20 mg capsule,delayed release(DR/EC) 20 mg PO DAILY Referrals: Nancy Soto MD [Primary Care Provider] - 2 days Stand Alone Forms: Work/School Release Interventions: ED Discharge Assessment Last Done: 08/05/24 10:31 Discharge Date/Time: 08/05/24 10:31 Print Language: Citizen Of [place]
[2024-08-05 07:28] LABS: MANUAL DIFF FLAG NO
[2024-08-05] MEDS: ondansetron HCL 4 MG/2 ML VIAL IVPUSH (07:34)
[2024-08-05] MEDS: Morphine Sulfate 4 MG/ML CARTRIDGE IVPUSH (07:35)
[2024-08-05 07:36] LABS: Basophils Percent Auto 0.5 % (0-2); Eosinophils Absolute Auto 0.3 X10*3/uL (0.0-0.4); Eosinophils Percent Auto 4.3 % (0-4); Hematocrit 44.2 % (42.0-52.0); Hemoglobin 14.9 g/dl (14.0-18.0); Imm Gran Abs Auto 0.02 X10*3/uL (0.00-0.03); Imm Gran Pct Auto 0.3 % (0.0-0.4); Lymphocytes Percent Auto 25.2 % (20-40); Mean Corpuscular HGB Conc 33.7 g/dl (31.0-36.0); Mean Corpuscular Hemoglobin 27.2 pg (27.0-33.0); Mean Corpuscular Volume 80.7 fL (80.0-98.0); Mean Platelet Volume 8.8 fL (9.4-12.4); Monocytes Absolute Auto 0.7 X10*3/uL (0.1-1.2); Neutrophils Absolute Auto 4.7 x10*3/uL (2.0-8.3); Neutrophils Percent Auto 60.7 % (45-73); Platelet Count 385 X10*3/uL (160-400); Red Blood Count 5.48 X10*6/uL (4.60-5.80); Red Cell Distribution Width 13.7 % (11.0-16.0); White Blood Count 7.8 X10*3/uL (4.8-10.8)
[2024-08-05 07:49] LABS: Alanine Aminotransferase 38 U/L (0-40); Albumin Level 4.1 g/dL (3.5-5.0); Alkaline Phosphatase 93 U/L (39-117); Anion Gap 15 (12-20); Aspartate Amino Transferase 36 U/L (5-37); Bilirubin Total 0.3 mg/dL (0.0-1.0); Blood Urea Nitrogen 16 mg/dL (9-16); Calcium 9.5 mg/dL (8.4-10.2); Carbon Dioxide 21 mmol/L (22-29); Chloride 107 mmol/L (96-108); Creatinine Clr Calc Pharmacy 97.6; Estimated Glomerular Filt Rate > 60; Glucose Random 123 mg/dL (60-115); Sodium 139 mmol/L (135-145); Total Protein 7.7 g/dL (6.5-8.0)
[2024-08-05] MEDS: iohexoL 350 MG/ML 100 ML INFUS..BTL IV (09:01)
[2024-08-05 09:07] LABS: Appearance Urine Clear; Color Urine Yellow; Glucose Urine UA Negative (Negative); Leukocyte Esterase Urine Negative (Negative); Nitrite Urine Negative (Negative); PH 5.5 (5.0-9.0); Specific Gravity - Urine 1.025 (1.005-1.025); Urine Blood Negative (Negative); Urine Ketones Negative (Negative); Urine Protein Negative (Neg-Trace)
[2024-08-05 09:19] LABS: Lipase 19 U/L (8-78)
[2024-08-05 09:49] VITALS: BP 140/95; PULSE 63; RESP 20; TEMP 36.5; O2SAT 99
[2024-08-05 10:31] VITALS: BP 140/95; PULSE 63; RESP 20; TEMP 36.5; O2SAT 99
== END 2024-08-05 10:31 | disposition home or self-care (01) ==
PROVIDERS: Emergency Provider Emergency Medicine; PCP Internal Medicine
DX: K52.9 Noninfective gastroenteritis and colitis, unspecified (principal); R10.31 Right lower quadrant pain; Z79.899 Other long term (current) drug therapy
CPT/HCPCS: 36415; 74177; 80053; 81003; 83690; 85025; 96374; 96375; 99284; J2270; J2405; Q9967

== ENCOUNTER 2024-11-14 10:03 | Emergency (ER) | payer OTHER, SELFPAY ==
--- NOTE | 2024-11-14 | ECG_ITS ---
Test Reason : chest pain Blood Pressure : */* mmHG Vent. Rate : 139 BPM Atrial Rate : 139 BPM P-R Int : 120 ms QRS Dur : 68 ms QT Int : 274 ms P-R-T Axes : 58 10 1 degrees QTcB Int : 416 ms Sinus tachycardia Otherwise normal ECG No previous ECGs available Referred By: Generic ED Physician Electronically Signed By: Michael Cartagena
--- NOTE | ~2024-11-14 | XR_ITS ---
EXAMINATION: XR CHEST CLINICAL INFORMATION: left sided chest pain COMPARISON: 05/26/2018 TECHNIQUE: Frontal view of the chest was obtained. FINDINGS: No significant abnormality is noted involving the heart, lungs, mediastinum, bony thorax or soft tissues. XR/XR chest 1V IMPRESSION: No active pulmonary disease. Electronically signed by: Abdoul Mendoza MD 11/14/2024 11:37 AM [facility]
--- NOTE | ~2024-11-14 | US_ITS ---
EXAMINATION: US ABDOMEN LIMITED CLINICAL INFORMATION: Abnormal LFTs, right upper quadrant pain.. COMPARISON: CT abdomen and pelvis 08/05/2024. Ultrasound abdomen 09/13/2022. TECHNIQUE: Real-time imaging of the right upper quadrant abdominal viscera. FINDINGS: PANCREAS: Visualized portions are unremarkable. LIVER: The liver is normal in size. The liver contour is normal. There are focal echogenic geographic regions in the right hepatic lobe, likely focal fatty infiltration. No suspicious focal hepatic lesion. There is no intrahepatic biliary duct dilatation seen. GALLBLADDER: The gallbladder is physiologically distended without evidence of stones, sludge, polyps, wall thickening or pericholecystic fluid. COMMON BILE DUCT: Normal in caliber measuring 0.3 cm in diameter. RIGHT KIDNEY: No hydronephrosis. No renal calculi or focal parenchymal lesions. The kidney measures 10.7 cm in maximum dimension. FREE FLUID: None. US/US abdomen limited IMPRESSION: 1. Probable foci of geographic fatty infiltration of the liver. Liver otherwise normal without suspicious findings. If there is further concern, MRI recommended. 2. No biliary dilatation. Normal gallbladder. Electronically signed by: Abdoul Mendoza MD 11/14/2024 12:04 PM [facility]
[2024-11-14 10:07] VITALS: BP 148/104; PULSE 148; RESP 20; TEMP 37.2; O2SAT 90; BMI 27.5
[2024-11-14 10:25] VITALS: PULSE 131; RESP 22
[2024-11-14 10:27] LABS: MANUAL DIFF FLAG NO
[2024-11-14 10:29] VITALS: O2SAT 95
[2024-11-14 10:30] LABS: Basophils Absolute Auto 0.1 X10*3/uL (0.0-0.2); Basophils Percent Auto 0.6 % (0-2); Eosinophils Percent Auto 0.1 % (0-4); Hematocrit 47.2 % (42.0-52.0); Hemoglobin 15.5 g/dl (14.0-18.0); Imm Gran Abs Auto 0.08 X10*3/uL (0.00-0.03); Imm Gran Pct Auto 0.6 % (0.0-0.4); Lymphocytes Absolute Auto 1.7 X10*3/uL (1.2-4.9); Lymphocytes Percent Auto 12.8 % (20-40); Mean Corpuscular HGB Conc 32.8 g/dl (31.0-36.0); Mean Corpuscular Hemoglobin 26.1 pg (27.0-33.0); Mean Corpuscular Volume 79.5 fL (80.0-98.0); Mean Platelet Volume 8.4 fL (9.4-12.4); Monocytes Absolute Auto 1.4 X10*3/uL (0.1-1.2); Monocytes Percent Auto 10.6 % (2-11); Neutrophils Absolute Auto 10.2 x10*3/uL (2.0-8.3); Neutrophils Percent Auto 75.3 % (45-73); Platelet Count 377 X10*3/uL (160-400); Red Blood Count 5.94 X10*6/uL (4.60-5.80); White Blood Count 13.5 X10*3/uL (4.8-10.8)
[2024-11-14] MEDS: 0.9 % Sodium Chloride 1,000 ML 999 ML IV (10:41)
[2024-11-14 10:42] VITALS: BP 143/92; PULSE 128; RESP 22; O2SAT 96
[2024-11-14 10:44] LABS: Alanine Aminotransferase 57 U/L (0-40); Albumin Level 4.6 g/dL (3.5-5.0); Alkaline Phosphatase 81 U/L (39-117); Anion Gap 13 (12-20); Aspartate Amino Transferase 45 U/L (5-37); Bilirubin Direct 0.1 mg/dL (0.0-0.5); Bilirubin Total 0.3 mg/dL (0.0-1.0); Blood Urea Nitrogen 13 mg/dL (9-16); Carbon Dioxide 23 mmol/L (22-29); Chloride 103 mmol/L (96-108); Creatinine Clr Calc Pharmacy 79.4; Estimated Glomerular Filt Rate > 60; Glucose Random 114 mg/dL (60-115); Lipase 18 U/L (8-78); Potassium 3.8 mmol/L (3.3-5.1); Sodium 135 mmol/L (135-145); Total Protein 8.8 g/dL (6.5-8.0)
--- NOTE | 2024-11-14 10:45 | PC.NURSE ---
Pt presents to ED from home with reports of left sided chest pain, headache and diaphoresis. Reporting he stopped drinking alcohol 1 month ago, has not had any since. Does report marijuana and occasional cocaine use (none recent). Pt alert and oriented, breathing even and unlabored, skin diaphoretic. Reporting left sided chest pain and headache. Sinus tach on last putter away. CIWA 11. Provider aware
[2024-11-14 10:51] LABS: Troponin-I High Sensitivity < 2.7 ng/L (<3.5-35.0)
--- NOTE | 2024-11-14 11:05 | ED_ITS ---
HPI - Arrhythmia/Palpitations General Chief Complaint: Arrhythmia/Palpitations Stated Complaint: rapid heart beat pain chest l arm numbness Time Seen by Provider: 11/14/24 10:33 Source: patient Mode of arrival: ambulatory Limitations: no limitations History of Present Illness ED Provider: Mary Jane Garcia PA-C HPI narrative: 33 yo male with history of ETOH use disorder presents to the ER for evaluation of heart palpitations & left sided chest pain that started this morning when he was laying down. He reports it was associated with pain and numbness in his left arm which has since resolved. He reports being sick the last 3 days with fevers, cough, runny nose, nasal congestion. His significant other has COVID he thinks. He also endorses bilateral lower rib pain with coughing and RUQ abdominal pain with the sensation his liver is swollen. He reports almost a month ago he quit drinking cold turkey. He used to drink a lot every day. He reports going through withdrawal at home but denies history of seizures. He reports ongoing left sided chest pains and RUQ pains on arrival. MD complaint: palpitations (& chest pain) Onset (ago): hour(s) Duration: constant Severity: moderate Context: occurred during rest Associated symptoms: chest pain, anxiety, cough and other (fever, RUQ pain) Related Data Home Medications ?Medication ?Instructions ?Recorded ?Confirmed omeprazole 20 mg capsule,delayed 20 mg PO DAILY 08/03/23 08/03/23 release Previous Rx's ?Medication ?Instructions ?Recorded cyclobenzaprine 5 mg tablet 5 mg PO TID PRN shoulder pain 7 07/10/23 days #21 tabs naproxen 500 mg tablet 500 mg PO BID 7 days #14 tabs 07/10/23 prednisone 20 mg tablet 20 mg PO DAILY 7 days #7 tabs 07/10/23 amoxicillin 875 mg-potassium 1 tab PO BID #14 tabs 08/05/24 clavulanate 125 mg tablet oxycodone 5 mg capsule 5 mg PO Q8H PRN pain #12 caps 08/05/24 Allergies Allergy/AdvReac Type Severity Reaction Status Date / Time SEAFOOD Allergy Severe ANAPHYLAXIS Uncoded 11/14/24 10:10 Review of Systems 2 Review of Systems: Yes all other systems are reviewed and are negative PMFSH Social History Social History Smoked in Last 30 Days: No Use of substances other than those prescribed or required for medical reasons: Yes Substance Use Type: Crack/Cocaine and Marijuana Advance Directives: No Advance Directives Information Provided: Yes Do you have a plan to hurt others: No Plan Physical Exam 2 Vital Signs: Vital Signs: Last Vital Signs Temp 99.0 F 11/14/24 10:07 Pulse 108 H 11/14/24 12:01 Resp 18 11/14/24 12:01 BP 148/86 H 11/14/24 12:01 Pulse Ox 96 11/14/24 12:01 O2 Del Method Room Air 11/14/24 12:01 BMI result Body Mass Index 27.5 Appearance: Alert. Oriented X3. No acute distress. Head: normocephalic, atraumatic. Eyes: Pupils equal, round and reactive to light. ENT: Pharynx normal. No tonsillar swelling or exudate. Neck: Normal inspection. Neck supple. CVS: Tachycardic, regular rhythm, HR 120-130s. Pulses normal. +left anterior chest wall tenderness Respiratory: No respiratory distress. Breath sounds normal. Abdomen: Soft with RUQ tenderness, no rebound or guarding. normal active +BS x4. No appreciated HSM Skin: Skin warm and dry. Normal skin color. Normal skin turgor. No rashes. Extremities: No lower extremity edema. No joint swelling. Neuro/psych: Oriented X 3. No motor deficit. No sensory deficit. CN II-XII intact. Normal speech and cognition. Medications Administered Discontinued Medications Generic Name Dose Route Start Last Admin Trade Name Freq PRN Reason Stop Dose Admin Sodium Chloride 1,000 mls @ 999 mls/hr 11/14/24 10:45 11/14/24 12:02 Ns IV 11/14/24 11:45 Infused .Q1H1M PIPPA Infusion Ketorolac Tromethamine 30 mg 11/14/24 11:03 11/14/24 11:10 Ketorolac Tromethamine 30 Mg/Ml Vial IVPUSH 11/14/24 11:04 30 mg ONCE ONE Administration Lorazepam 1 mg 11/14/24 11:05 11/14/24 11:10 Lorazepam 1 Mg Tablet PO 11/14/24 11:06 1 mg ONCE ONE Administration Medical Decision Making Medical Decision Making MDM Narrative: 33 yo male with history of ETOH use disorder presenting with left sided chest pains, palpitations that started today along with flu like symptoms for the last 3 days. quit ETOH use a month ago arrives to the ER tachycardic 130s and hypertensive 140s systolic. concern for possible ETOH withdrawal, CIWA 11. he does have vague, nonspecific complaints along with his flu-like symptoms. he has RUQ pain and tenderness along w/ mild elevation of LFTs so RUQ U/S ordered Patient given IVF, toradol and ativan. HR improved to 110s. His viral swab was found to be positive for influenza A. RUQ U/S showed small area of fatty liver. Patient's symptoms likely due to influenza A. Stable for d/c home with supportive care. return precautions discussed. Differential Diagnosis Differential Diagnoses: The differential diagnosis associated with the presentation includes etoh withdrawal, viral syndrome, PNA, afib, cardiac arrythmia, ETOH hepatitis, low suspicion for ACS or PE Admission/Observation Consideration of admission/observation: Escalation of care including admission/observation considered Lab Data MDM Lab Attestation statement: I reviewed the patient's lab results. mild leukocytosis, mild transaminitis with normal biliribins, troponin negative 11/14/24 10:23 11/14/24 10:23 Labs: Lab Results 11/14/24 Range/Units 10:23 WBC 13.5 H (4.8-10.8) X10*3/uL RBC 5.94 H (4.60-5.80) X10*6/uL Hgb 15.5 (14.0-18.0) g/dl Hct 47.2 (42.0-52.0) % MCV 79.5 L (80.0-98.0) fL MCH 26.1 L (27.0-33.0) pg MCHC 32.8 (31.0-36.0) g/dl RDW 14.0 (11.0-16.0) % Plt Count 377 (160-400) X10*3/uL MPV 8.4 L (9.4-12.4) fL Immature Gran % (Auto) 0.6 H (0.0-0.4) % Neut % (Auto) 75.3 H (45-73) % Lymph % (Auto) 12.8 L (20-40) % [place] % (Auto) 10.6 (2-11) % Eos % (Auto) 0.1 (0-4) % Baso % (Auto) 0.6 (0-2) % Lymph # (Auto) 1.7 (1.2-4.9) X10*3/uL [place] # (Auto) 1.4 H (0.1-1.2) X10*3/uL Eos # (Auto) 0.0 (0.0-0.4) X10*3/uL Baso # (Auto) 0.1 (0.0-0.2) X10*3/uL Abs Immat Gran (auto) 0.08 H (0.00-0.03) X10*3/uL Absolute Neuts (auto) 10.2 H (2.0-8.3) x10*3/uL Absolute Nucleated RBC 0.000 (0.0-0.012) X10*3/uL Nucleated RBC % (auto) 0.0 (0.0-0.2) /100WBC Sodium 135 (135-145) mmol/L Potassium 3.8 (3.3-5.1) mmol/L Chloride 103 (96-108) mmol/L Carbon Dioxide 23 (22-29) mmol/L Anion Gap 13 (12-20) BUN 13 (9-16) mg/dL Creatinine 1.25 (0.5-1.4) mg/dL Estim Creat Clear Calc 79.4 Estimated GFR > 60 Random Glucose 114 (60-115) mg/dL Calcium 10.0 (8.4-10.2) mg/dL Total Bilirubin 0.3 (0.0-1.0) mg/dL Direct Bilirubin 0.1 (0.0-0.5) mg/dL AST 45 H (5-37) U/L ALT 57 H (0-40) U/L Alkaline Phosphatase 81 (39-117) U/L Troponin I High Sens < 2.7 (<3.5-35.0) ng/L Total Protein 8.8 H (6.5-8.0) g/dL Albumin 4.6 (3.5-5.0) g/dL Lipase 18 (8-78) U/L Influenza Type A (PCR) POSITIVE A (Negative) Influenza Type B (PCR) NEGATIVE (Negative) RSV RNA Qual (PCR) NEGATIVE (Negative) SARS-CoV-2 RNA (RT-PCR) NEGATIVE (Negative) Independent Interpretation I performed an independent interpretation of an: EKG and Plain X-Ray Interpretation: ekg with sinus tachycardia, HR 139, normal CT interval, normal QTc, CXR clear with no focal infiltrate or effusion Radiology Impression Discussion of test interpretation with radiology: I have reviewed the radiologist's reading. Radiologist Impression: XR/XR chest 1V IMPRESSION: No active pulmonary disease. Prescription Management I considered prescription management with: Pain Medication, Antiviral and Antibiotic Chronic Conditions Patient?s care impacted by: Other (ETOH use disorder) Critical Care Time Critical Care Time Critical Care Time: No Discharge Plan Discharge Clinical Impression: Influenza A Patient Disposition: Home, Self-Care Instructions: Influenza (DC) Additional Instructions: You were found to be Influenza A POSITIVE today. Your chest x-ray, EKG and labs were largley unremarkable. Your cardiac workup was negative. Your liver ultrasound showed a small area of fatty liver. It is important that your continue NOT drinking alcohol. Rest. Drink plenty of fluids. Do not go out in public while not feeling well. Take over the counter cold/flu medications as needed for your symptoms. Take Tylenol and/or Motrin as needed for fevers and body aches. Follow up with your doctor as needed. If you develop new or worsening symptoms call 911 or come back to the ER for further evaluation. Prescriptions: No Action amoxicillin-pot clavulanate 875-125 mg tablet 1 tab PO BID Qty: 14 0RF oxycodone 5 mg capsule 5 mg PO Q8H PRN (Reason: pain) Qty: 12 0RF Rx Instructions: Partial Fill upon patient request. prednisone 20 mg tablet 20 mg PO DAILY 7 Days Qty: 7 0RF naproxen 500 mg tablet 500 mg PO BID 7 Days Qty: 14 0RF cyclobenzaprine 5 mg tablet 5 mg PO TID PRN (Reason: shoulder pain) 7 Days Qty: 21 0RF omeprazole 20 mg capsule,delayed release(DR/EC) 20 mg PO DAILY Referrals: Nancy Soto MD [Primary Care Provider] - Print Language: Italian
[2024-11-14] MEDS: LORazepam 1 MG TABLET PO (11:10)
[2024-11-14] MEDS: Ketorolac Tromethamine 30 MG/ML VIAL IVPUSH (11:10)
[2024-11-14 11:13] LABS: Influenza A PCR POSITIVE (Negative); Influenza B PCR NEGATIVE (Negative); Resp Syncy Virus RNA Qual PCR NEGATIVE (Negative); SARS COV2 PCR INHOUSE NEGATIVE (Negative)
[2024-11-14 12:01] VITALS: BP 148/86; PULSE 108; RESP 18; O2SAT 96
[2024-11-14 13:06] VITALS: BP 140/82; PULSE 104; RESP 16; TEMP 37.5; O2SAT 96
== END 2024-11-14 13:12 | disposition home or self-care (01) ==
PROVIDERS: Emergency Provider Emergency Medicine; PCP Internal Medicine
DX: I49.9 Cardiac arrhythmia, unspecified (principal); R07.89 Other chest pain; R00.2 Palpitations; R20.0 Anesthesia of skin; R11.0 Nausea; R00.0 Tachycardia, unspecified; R10.11 Right upper quadrant pain; R79.89 Other specified abnormal findings of blood chemistry; Z03.818 Encounter for observation for suspected exposure to other biological agents ruled out; Z79.899 Other long term (current) drug therapy
CPT/HCPCS: 0241U; 36415; 71045; 76705; 80053; 82248; 83690; 84484; 85025; 93005; 96361; 96374; 99284; 99285; J1885

== ENCOUNTER → 2024-11-14 10:09 | Outpatient (BNV) | DX: R07.9 Chest pain, unspecified (principal); R00.0 Tachycardia, unspecified | CPT/HCPCS: 93010 ==

== ENCOUNTER → 2024-11-14 11:14 | Outpatient (BNV) | payer OTHER, SELFPAY | PROVIDERS: Emergency Provider Emergency Medicine; PCP Internal Medicine; Visit Provider Radiology Diagnostic Radiology | DX: R10.11 Right upper quadrant pain (principal); R07.89 Other chest pain | CPT/HCPCS: 71045; 76705 ==